=== PATIENT | female | born 1935 ===

== ENCOUNTER → 2022-06-18 11:48 | Outpatient (CLI) | payer MEDICARE, BC, SELFPAY ==
[2022-06-18 19:58] LABS: Add Manual Diff / Slide Review NO; BUN Creatinine Ratio 16.9 (6-22); Basophils Absolute Auto 100 /uL (0-100); Basophils Percent Auto 1.3 % (0-2); Blood Urea Nitrogen 11 mg/dL (7-17); Calcium 9.1 mg/dL (8.4-10.2); Carbon Dioxide 28 mmol/L (22-32); Chloride 103 mmol/L (98-107); Cholesterol 173 mg/dL (140-199); Eosinophils Absolute Auto 100 /uL (0-450); Eosinophils Percent Auto 1.7 % (2-4); Estimated Glomerular Filt Rate > 60 mL/min (>60); Glucose 124 mg/dL (80-110); HDL Cholesterol 61 mg/dL (40-60); HEMOLYSIS 34 (0-50); Hematocrit 40.1 % (36-46); Hemoglobin 13.6 g/dL (12.0-16.0); LDL Cholesterol Calculated 89 mg/dL (<100); Lymphocytes Absolute Auto 2800 /uL (1100-4500); Lymphocytes Percent Auto 32.2 % (25-40); Mean Corpuscular Hemoglobin 28.9 PG (26-34); Mean Corpuscular Volume 84.9 fL (80-100); Monocytes Absolute Auto 500 /uL (0-900); Neutrophils Absolute Auto 5200 /uL (1500-7000); Neutrophils Percent Auto 58.8 % (50-75); Platelet Count 240 X10^3/uL (150-400); Potassium 4.7 mmol/L (3.4-5.1); Red Blood Cell Count 4.72 X10^6/uL (4.0-5.2); Sodium 137 mmol/L (137-145); Triglycerides 114 mg/dL (35-150); White Blood Cell Count 8.8 X10^3/uL (4.5-11.0)
[2022-06-18 20:46] LABS: Vitamin B12 303 pg/mL (239-931)
== END ==
PROVIDERS: PCP Family Medicine; Visit Provider Family Medicine
DX: Z00.00 Encounter for general adult medical examination without abnormal findings (principal); Z87.828 Personal history of other (healed) physical injury and trauma; Z13.220 Encounter for screening for lipoid disorders; Z13.0 Encounter for screening for diseases of the blood and blood-forming organs and certain disorders involving the immune mechanism; Z13.1 Encounter for screening for diabetes mellitus; Z13.820 Encounter for screening for osteoporosis; Z71.85 Encounter for immunization safety counseling; Z78.0 Asymptomatic menopausal state
CPT/HCPCS: 80048; 80061; 82607; 85025